=== PATIENT | male | born 1975 | race Caucasian/White ===

== ENCOUNTER 2021-03-20 12:51 | Day surgery (SDC) | payer OTHER ==
[2021-03-20] MEDS ORDERED: Sodium Chloride 0.9(Preservative Free) 10 ML IJ ONE (12:52)
[2021-03-20] MEDS ORDERED: Depo-Medrol 40 MG/ML IM ONE (12:52)
[2021-03-20] MEDS ORDERED: DIPRIVAN 200 MG/20 ML IV ONE (14:35)
[2021-03-20] MEDS ORDERED: Lactated Ringers 1,000 ML IV ONE (15:42)
--- NOTE | 2021-03-20 16:57 | XRAY ---
Indication: Left L4-S1 transforaminal VANESSA. Intraoperative fluoroscopy provided for 27 seconds. 3 digital spot image submitted for interpretation demonstrates posterior needle tips projecting over the expected left L4 and L5 nerve roots. Small amount of contrast injected for needle tip placement. Correlate with intraoperative findings/report.
--- NOTE | 2021-03-20 17:12 | XRAY ---
27 seconds fluoroscopy time in surgery for left L4-S1 transforaminal VANESSA.
== END 2021-03-20 14:56 | disposition home or self-care (01) ==
LOC: SDC-PAIN 12:51
PROVIDERS: ATTEND Psychiatry & Neurology Pain Medicine
DX: M54.16 Radiculopathy, lumbar region (principal); F41.9 Anxiety disorder, unspecified; F32.9 Major depressive disorder, single episode, unspecified; M19.90 Unspecified osteoarthritis, unspecified site; K21.9 Gastro-esophageal reflux disease without esophagitis; Z79.899 Other long term (current) drug therapy
CPT/HCPCS: 64483; 64484; 72100; 77002; J1030; J2704; Q9966

== ENCOUNTER 2021-11-06 13:55 | Day surgery (SDC) | payer OTHER ==
[2021-11-06] MEDS ORDERED: Xylocaine 1% Vial 30 ML PF IJ ONE (13:56)
[2021-11-06] MEDS ORDERED: BUPIVACAINE 0.5% VIAL IJ ONE (13:56)
[2021-11-06] MEDS ORDERED: Depo-Medrol 40 MG/ML IM ONE (13:56)
--- NOTE | 2021-11-06 16:52 | XRAY ---
Indication: Left hip injection. Intraoperative fluoroscopy provided for 16 seconds. Single digital spot image submitted for interpretation demonstrates needle tip projecting lateral to the left femur neck. Small amount of contrast injected for needle tip placement. Correlate with intraoperative findings/report.
--- NOTE | 2021-11-06 16:54 | XRAY ---
16 seconds fluoroscopy time in surgery for intra-articular injection of the left hip joint.
== END 2021-11-06 16:36 | disposition home or self-care (01) ==
LOC: SDC-PAIN 13:55
PROVIDERS: ATTEND Psychiatry & Neurology Pain Medicine
DX: M16.12 Unilateral primary osteoarthritis, left hip (principal); Z79.899 Other long term (current) drug therapy
CPT/HCPCS: 20610; 73501; 77002; J1030; J2001; Q9966

== ENCOUNTER 2021-12-05 09:53 | Day surgery (SDC) | payer OTHER ==
[2021-12-05] MEDS ORDERED: LIDOCAINE HCL 2% 100 MG/5 ML IJ ONE (09:54)
[2021-12-05] MEDS ORDERED: Depo-Medrol 40 MG/ML IM ONE (09:54)
[2021-12-05] MEDS ORDERED: Lactated Ringers 1,000 ML IV ONE (11:15)
[2021-12-05] MEDS ORDERED: DIPRIVAN 200 MG/20 ML IV ONE (11:30)
[2021-12-05] MEDS ORDERED: Xylocaine-Mpf 2% 5 Ml Vial ONE (11:43)
--- NOTE | 2021-12-06 09:31 | XRAY ---
Indication: Left L4-S1 MBB. Intraoperative fluoroscopy provided for 16 seconds. Single digital spot image submitted for interpretation demonstrates posterior needle tips projecting over the expected left L4-S1 nerve roots. Correlate with intraoperative findings/report.
--- NOTE | 2021-12-06 10:08 | XRAY ---
16 seconds of fluoroscopy was used in surgery for a left L4-S1 MBB.
== END 2021-12-05 11:54 | disposition home or self-care (01) ==
LOC: SDC-PAIN 09:53
PROVIDERS: ATTEND Psychiatry & Neurology Pain Medicine
DX: M47.816 Spondylosis without myelopathy or radiculopathy, lumbar region (principal); Z79.899 Other long term (current) drug therapy
CPT/HCPCS: 64493; 64494; 72020; 77002; J1030; J2704

== ENCOUNTER 2024-01-13 12:47 | Day surgery (SDC) | payer OTHER ==
[2024-01-13] MEDS ORDERED: LIDOCAINE HCL 1% 50 MG/5 ML VL PF IJ ONE (12:48)
[2024-01-13] MEDS ORDERED: Depo-Medrol 40 MG/ML IM ONE (12:48)
[2024-01-13] MEDS ORDERED: DIPRIVAN 200 MG/20 ML IV ONE (13:49)
[2024-01-13] MEDS ORDERED: Xylocaine-Mpf 2% 5 Ml Vial ONE (13:51)
[2024-01-13] MEDS ORDERED: Versed 2 MG/2 ML Injection ONE (13:54)
[2024-01-13] MEDS ORDERED: Lactated Ringers 1,000 ML IV ONE (14:05)
--- NOTE | 2024-01-13 14:48 | XRAY ---
Indication: Bilateral L4-S1 MBB. Intraoperative fluoroscopy provided for 17 seconds. Single digital spot image submitted for interpretation demonstrates posterior needle tips projecting over expected left and right L4-S1 nerve roots. Correlate with intraoperative findings/report.
--- NOTE | 2024-01-13 17:39 | XRAY ---
17 seconds of fluoroscopy was used in surgery for a bilateral L4-S1 MBB.
== END 2024-01-13 14:25 | disposition home or self-care (01) ==
LOC: SDC-PAIN 12:47
PROVIDERS: ATTEND Psychiatry & Neurology Pain Medicine
DX: M47.816 Spondylosis without myelopathy or radiculopathy, lumbar region (principal)
CPT/HCPCS: 64493; 64494; 72020; 77002; J1010; J2001; J2250; J2704; J1030

== ENCOUNTER 2024-02-24 13:43 | Day surgery (SDC) | payer OTHER ==
[2024-02-24] MEDS ORDERED: BUPIVACAINE 0.5% VIAL IJ ONE (13:44)
[2024-02-24] MEDS ORDERED: Depo-Medrol 40 MG/ML IM ONE (13:44)
[2024-02-24] MEDS ORDERED: Lactated Ringers 1,000 ML IV ONE (14:55)
[2024-02-24] MEDS ORDERED: DIPRIVAN 200 MG/20 ML IV ONE (14:56)
--- NOTE | 2024-02-24 16:20 | XRAY ---
Indication: Bilateral L4-S1 MBB. Intraoperative fluoroscopy provided for 18 seconds. Single digital spot image submitted for interpretation demonstrates posterior needle tips projecting over the expected left and right L4-S1 nerve roots. Correlate with intraoperative findings/report.
--- NOTE | 2024-02-24 17:10 | XRAY ---
18 seconds of fluoroscopy was used in surgery for a bilateral L4-S1 MBB.
== END 2024-02-24 15:30 | disposition home or self-care (01) ==
LOC: SDC-PAIN 13:43
PROVIDERS: ATTEND Psychiatry & Neurology Pain Medicine
DX: M47.816 Spondylosis without myelopathy or radiculopathy, lumbar region (principal)
CPT/HCPCS: 64493; 64494; 72020; 77002; J1010; J2704

== ENCOUNTER 2024-05-11 14:35 | Day surgery (SDC) | payer BC ==
[2024-05-11] MEDS ORDERED: Depo-Medrol 40 MG/ML IM ONE (14:36)
[2024-05-11] MEDS ORDERED: BUPIVACAINE 0.5% VIAL IJ ONE (14:36)
[2024-05-11] MEDS ORDERED: LIDOCAINE HCL 1% 50 MG/5 ML VL PF IJ ONE (14:36)
[2024-05-11] MEDS ORDERED: DIPRIVAN 200 MG/20 ML IV ONE ×2 (16:18→16:28)
[2024-05-11] MEDS ORDERED: Lactated Ringers 1,000 ML IV ONE (17:55)
--- NOTE | 2024-05-11 19:00 | XRAY ---
Indication: Left L4-S1 RFA. Intraoperative fluoroscopy provided for 33 seconds. 4 digital spot image submitted for interpretation demonstrates posterior needle tips projecting over the expected left L4-S1 nerve roots. Correlate with intraoperative findings/report.
--- NOTE | 2024-05-12 12:14 | XRAY ---
33 seconds of fluoroscopy was used in surgery for a left L4-S1 RFA.
== END 2024-05-11 17:08 | disposition home or self-care (01) ==
LOC: SDC-PAIN 14:35
PROVIDERS: ATTEND Psychiatry & Neurology Pain Medicine
DX: M47.816 Spondylosis without myelopathy or radiculopathy, lumbar region (principal)
CPT/HCPCS: 64635; 64636; 72100; 77002; J2001; J2704

== ENCOUNTER 2024-05-25 14:51 | Day surgery (SDC) | payer BC ==
[2024-05-25] MEDS ORDERED: Depo-Medrol 40 MG/ML IM ONE (14:52)
[2024-05-25] MEDS ORDERED: LIDOCAINE HCL 1% 50 MG/5 ML VL PF IJ ONE (14:52)
[2024-05-25] MEDS ORDERED: BUPIVACAINE 0.5% VIAL IJ ONE (14:52)
[2024-05-25] MEDS ORDERED: DIPRIVAN 200 MG/20 ML IV ONE ×2 (16:08→16:23)
[2024-05-25] MEDS ORDERED: Lactated Ringers 1,000 ML IV ONE (17:12)
--- NOTE | 2024-05-25 17:22 | XRAY ---
Indication: Right L4-S1 RFA. Intraoperative fluoroscopy provided for 22 seconds. 4 digital spot images submitted for interpretation demonstrates posterior needle tips projecting over the expected right L4-S1 nerve roots. Correlate with intraoperative findings/report.
--- NOTE | 2024-05-25 17:28 | XRAY ---
22 seconds of fluoroscopy was used in surgery for a right L4-S1 RFA.
== END 2024-05-25 16:58 | disposition home or self-care (01) ==
LOC: SDC-PAIN 14:51
PROVIDERS: ATTEND Psychiatry & Neurology Pain Medicine
DX: M47.816 Spondylosis without myelopathy or radiculopathy, lumbar region (principal)
CPT/HCPCS: 64635; 64636; 72100; 77002; J2001; J2704

== ENCOUNTER 2025-01-04 10:07 | Day surgery (SDC) | payer BC ==
[2025-01-04] MEDS ORDERED: Depo-Medrol 40 MG/ML IM ONE (10:08)
[2025-01-04] MEDS ORDERED: BUPIVACAINE 0.5% VIAL IJ ONE (10:08)
[2025-01-04] MEDS ORDERED: propofoL IV ONE (12:13)
[2025-01-04] MEDS ORDERED: SUBLIMAZE 100 MCG/2 ML ONE (12:16)
--- NOTE | 2025-01-04 12:48 | XRAY ---
Indication: Left hip injection. Intraoperative fluoroscopy provided for 9 seconds. Single digital spot image submitted for interpretation demonstrates needle tip projecting lateral to left femur neck. Small amount of contrast injected for needle tip placement. Correlate with intraoperative findings/report.
--- NOTE | 2025-01-04 13:57 | XRAY ---
9 seconds of fluoroscopy was used in surgery for a left intra-articular hip injection.
== END 2025-01-04 12:40 | disposition home or self-care (01) ==
LOC: SDC-PAIN 10:07
PROVIDERS: ATTEND Psychiatry & Neurology Pain Medicine
DX: M16.12 Unilateral primary osteoarthritis, left hip (principal); R73.03 Prediabetes
CPT/HCPCS: 20610; 73501; 77002; 82947; J2704; J3010; Q9966

== ENCOUNTER 2025-02-08 09:54 | Day surgery (SDC) | payer BC ==
[2025-02-08] MEDS ORDERED: Depo-Medrol 40 MG/ML IM ONE (09:55)
[2025-02-08] MEDS ORDERED: BUPIVACAINE 0.5% VIAL IJ ONE (09:55)
[2025-02-08] MEDS ORDERED: propofoL IV ONE ×2 (12:11→12:21)
--- NOTE | 2025-02-08 14:15 | XRAY ---
Indication: Bilateral SI joint injection. Intraoperative fluoroscopy provided for 28 seconds. 2 digital spot image submitted for interpretation demonstrates posterior needle tips projecting over expected left and right SI joints. Small amount of contrast was injected for needle tip placement. Correlate with intraoperative findings/report.
--- NOTE | 2025-02-08 15:05 | XRAY ---
28 seconds of fluoroscopy was used in surgery for a bilateral sacroiliac joint injection.
[2025-02-08] MEDS ORDERED: Lactated Ringers 1,000 ML IV ONE (15:32)
== END 2025-02-08 12:52 | disposition home or self-care (01) ==
LOC: SDC-PAIN 09:54
PROVIDERS: ATTEND Psychiatry & Neurology Pain Medicine
DX: M46.1 Sacroiliitis, not elsewhere classified (principal); R73.03 Prediabetes
CPT/HCPCS: 27096; 72202; 82947; J2704; Q9966